=== PATIENT | female | born 1960 | race Caucasian/White ===

== ENCOUNTER 2016-11-15 01:05 | Emergency (ER) | payer OTHER ==
[~2016-11-15] VITALS: Ht 165.1 cm; Wt 72.7 kg
[2016-11-15 01:07] VITALS: BP 125/70; PULSE 92; RESP 16; O2SAT 99
--- NOTE | 2016-11-15 01:31 | ED.REPORT ---
HPI-General Illness Date of Service Nov 15, 2016 ED Provider: Dr. Logan Taveras M.D. A healthy 56 year old female presents to the ED with throat swelling onset suddenly just prior to arrival. The patient also reports sore throat, dysphagia , mild difficulty breathing, and bilateral gingival pain (R>L). She has not had dental work done recently. The patient gargled with Listerine today but denies other new food intake or medicine use. Nursing Notes Stated Complaint: SWOLLEN THROAT/PAIN WITH SWALLOWING Chief Complaint: FLU/Cold Symptoms Nursing Notes Reviewed: Yes Allergies: Coded Allergies: latex (Verified Allergy, Unknown, 01/05/15) lidocaine (Verified Allergy, Unknown, 01/05/15) Scheduled Famotidine (Pepcid) 20 Mg Tablet 20 MG PO BID Loratadine (Claritin) 10 Mg Capsule 10 MG PO DAILY Prednisone (PredniSONE) 20 Mg Tablet 60 MG PO DAILY Scheduled PRN diphenhydrAMINE HCl (Benadryl) 25 Mg Capsule 50 MG PO Q4 PRN PRN For Itching General Time Seen by MD: 01:31 Chief Complaint Other (Throat Swelling) Hx Obtained From: Patient Arrived By: Walk-in Sudden in Onset?: Yes Onset Occurred: Just prior to arrival Symptom Duration: Since onset Location: : Face (Gums): Neck (Throat) Quality: Painful Severity: Current: Moderate Severity: Maximum: Moderate Associated with: Reports: Difficulty breathing, Denies: Fever Pertinent Negative: Relieved by nothing Recent Healthcare: No recent doctor visit Past Medical History Past Medical History Denies Past Surgical History Denies Family History Noncontributory Smoking History Never Smoker Social History Drug Use: Denies drug use Other Social History: , Local resident Ambulatory Status Independent Review of Systems + Mild difficulty breathing, bilateral gingival pain (R>L) Full Review of Systems Constitutional: Denies: Fever Ears / Nose / Throat: Reports: Sore throat, Throat swelling GI: Reports: Dysphagia, Denies: Vomiting Complete sys rev & neg: except as marked. Physical Exam Vital Signs Vital Signs Date Time Temp Pulse Resp B/P Pulse Ox O2 Delivery O2 Flow Rate FiO2 11/15/16 05:09 36.9 84 16 122/74 97 Room Air 11/15/16 02:16 73 14 96 Room Air 11/15/16 01:07 36.3 92 16 125/70 99 Room Air Initial VS: Reviewed Head / Eyes: Atraumatic, Normocephalic Respiratory: No respiratory distress Cardiovascular: Regular rate & rhythm, Heart sounds normal Skin: Warm, Dry Neurologic: Alert, Oriented, Nonfocal Psychiatric: Mood/affect normal, Behavior normal, Normal thought content General/Constitutional: Awake, Alert Behavior: Positive: Tearful ENT: Airway patent, Mucous membranes moist, No pooling of secretions Pharynx / Tonsils / Uvula: Positive: Uvula enlarged (R>L), Negative: Uvula deviated L, Uvula deviated R, Uvula erythematous Tongue normal Floor of mouth normal to palpation with no tenderness, fluctuance, or masses Uvula with reduced mobility Voice hoarse Neck: Supple, Full range of motion, No adenopathy Respiratory / Chest: Breath sounds NL, Breath sounds = bilat, No respiratory distress, No stridor Interpretation & Diagnostics Lab Results Interpretation Test 11/15/16 02:03 Hold Purple Top Tube Received (Received) Hold Blue Top Tube Received (Received) Hold [place] Top Tube Received (Received) Re-Eval/Medical Decision Med Decision/Clinical Course Apparent allergic urticaria/angioedema in this otherwise healthy lady. No obvious exposure known. Much improved after her round of steroids, racemic epi, Benadryl, Pepcid. Observed an additional hour and a half with steady improvement ongoing. Discharge now with an ongoing course of prednisone, Pepcid and Claritin, and when necessary Benadryl. Prompt return if any recurrence counseled strongly. Time of Eval: 03:05 Patient Status: Condition improved Re-Evaluation/Progress Note: Uvula less swollen. Time of Eval: 04:25 Patient Status: Condition improved, Complete relief Re-Evaluation/Progress Note: Patient's uvula swelling has resolved. Discussed with patient lab results, diagnosis, and plan for discharge. Follow-up and return to the ER instructions given. Patient agrees with plan for care and all questions were addressed. Counseled Regarding: Diagnosis, Lab results, Need for follow-up, When/why to return to ED Discharge & Departure Shift Change Sign-Out Response to Therapy: Improved Primary Impression: Allergic angioedema Encounter type: initial encounter Qualified Code: T78.3XXA - Angioneurotic edema, initial encounter Disposition: Home Discharge Condition All VS Reviewed: Yes Condition: Improved Patient Instructions: Urticaria (ED) Additional Instructions: You will appear to have had an allergic response to something, involving the soft tissues of your throat. Take prednisone three tablets daily for five days. Take Claritin daily for a week. Take Pepcid twice daily for a week. Take Benadryl 50 mg promptly if your symptoms return, and return here. Do not delay returning if your symptoms in your throat recur, because they can progress rapidly to obstruction of your airway. Follow-up with your doctor in the office. Referrals: NOPCP (PCP) Scribe Attestation Portions of this note were transcribed by Lory Salcido. I, Dr. Taveras, personally performed the history, physical exam, and medical decision-making; I reviewed and confirmed the accuracy of the information in the transcribed note. Signed by: Carlota Wong, 11/15/2016, 05:05 Logan Taveras MD Nov 15, 2016 01:31 LORY SALCIDO Nov 15, 2016 01:50
[2016-11-15] MEDS ORDERED: Famotidine Inj 20 MG in IV Premix 1 EACH IV ONE (01:40)
[2016-11-15] MEDS ORDERED: Epinephrine Racemic 2.25% 0.5 mL Inhalation Solution NEB ONE (01:40)
[2016-11-15] MEDS ORDERED: Dexamethasone 10 mg/mL Inj IVPUSH ONE (01:40)
[2016-11-15 02:16] VITALS: PULSE 73; RESP 14; O2SAT 96
[2016-11-15] MEDS ORDERED: DIPH25CA6 PO (04:38)
[2016-11-15] MEDS ORDERED: FAMO20T PO (04:38)
[2016-11-15] MEDS ORDERED: LORA10CA PO (04:38)
[2016-11-15] MEDS ORDERED: PRE20 PO (04:38)
[2016-11-15 05:09] VITALS: BP 122/74; PULSE 84; RESP 16; O2SAT 97
== END 2016-11-15 05:41 | disposition home or self-care (01) ==
LOC: SED 01:05
DX: T78.3XXA Angioneurotic edema, initial encounter (principal); X58.XXXA Exposure to other specified factors, initial encounter; Y92.9 Unspecified place or not applicable; Y93.9 Activity, unspecified; Y99.9 Unspecified external cause status; Z88.4 Allergy status to anesthetic agent
CPT/HCPCS: 94664; 96374; 96375; 99284; J1100; J1200; J3490